=== PATIENT | male | born 1970 | race Caucasian/White ===

== ENCOUNTER → 2016-11-14 | Outpatient (CLI) | payer OTHER ==
[~2016-11-14] VITALS: Ht 185.4 cm; Wt 174.0 kg
[~2016-11-14] MED LIST: PENI500T2 PO
[2016-11-14 13:29] VITALS: BP 136/83; PULSE 132; Ht 185.4 cm; Wt 174.0 kg
== END | disposition home or self-care (01) ==
LOC: C.NEUR 11:57
PROVIDERS: ATTEND Internal Medicine Pulmonary Disease
DX: G47.33 Obstructive sleep apnea (adult) (pediatric) (principal); E66.01 Morbid (severe) obesity due to excess calories

== ENCOUNTER 2016-12-09 12:17 | Emergency (ER) | payer OTHER ==
[~2016-12-09] VITALS: Ht 185.4 cm; Wt 169.7 kg
[2016-12-09 12:26] VITALS: TEMP 36.4; Ht 185.4 cm; Wt 169.7 kg
[2016-12-09] MEDS ORDERED: PENI500T2 PO (12:50)
--- NOTE | 2016-12-09 12:51 | EMERGENCY ROOM VISIT NOTE ---
ED Visit Note First contact with patient: 12:30 CHIEF COMPLAINT: Right lower dental infection times one week HISTORY OF PRESENT ILLNESS: Patient is a 46-year-old male who presents emergency department for evaluation of right-sided dental infection. He has a tooth that he has seen the dentist for that initially they were going to place a crown on, but he was unable to afford this so they have plans to proceed with an extraction. He states that he is supposed to have it pulled by Dr. Vang in [place] in January. He noted increasing pain and swelling near the tooth that began earlier this week. He states that he was doing salt water rinses and using naproxen for pain. He states that he came to the head and "broke open last night." He notes a lot of blood and pus draining from the gum line that has continued through today. He notes the pain has markedly subsided since the abscess ruptured. He notes some swelling in the right lower jaw line. He denies any difficulty breathing or swallowing. He felt warm one evening but did not record a temperature with a thermometer. He has not been on any antibiotics recently. REVIEW OF SYSTEMS: Review of systems as per HPI. All other systems reviewed were negative. At least 6 systems reviewed. PMH: Electronic medical records are reviewed and summarized as above/below. See Problem List. SOCIAL HISTORY: Patient lives at home. On disability. Nonsmoker. PHYSICAL EXAM: Vital Signs: Reviewed Nurse's notes. CONSTITUTIONAL: Patient is a well-appearing 46-year-old -[place] male who is awake and alert and in no acute distress. Vital signs are stable. EARS: Tympanic membranes intact, not inflamed, have normal contour. External canals clear. MOUTH: Overall the patient has fair dentition. The right lower first molar in question has an obvious cavity, is fractured, and is tender to percussion. There is erythema along the gumline, and an open area with purulent drainage. The gumline was massaged and bloody/purulent material drained from the opening. Mucous membranes moist, no lesions, tongue and gums appear normal. THROAT: No pharyngeal injection, exudates, or tonsillar hypertrophy. Airway is patent. No trismus noted. FACE: There is slight swelling along the right lower jaw line, no erythema, increased warmth, induration or cellulitic changes. NECK: No lymphadenopathy. ED course: The patient was seen and evaluated as above. He has an abscess involving the right lower molar that is fractured and grossly carious. The area continues to drain on its own, and it did not require any additional intervention here at this time as it is still actively draining.. He will be placed on Pen-Vee K was given his first dose in the emergency department. He will continue salt water rinses and use [id number] medications for discomfort. He was advised to follow-up with his primary care provider or with his oral surgeon for further care and management. He has some swelling along the jaw line, but no evidence for facial cellulitis or Jorge Luis's angina at this time. Problem List Medical Problems: (1) Chronic Kidney Disease, Stage 3 (Moderate) Status: Chronic (2) Essential (Primary) Hypertension Status: Chronic (3) Morbid (Severe) Obesity Due To Excess Calories Status: Chronic (4) Schizophrenia, Unspecified Status: Chronic (5) Sleep Apnea, Unspecified Status: Chronic Current/Historical Medications Scheduled Penicillin V Potassium (Veetids), 500 MG PO QID Allergies Coded Allergies: No Known Allergies (Unverified , 12/09/16) Vital Signs Date Time Temp Pulse Resp B/P Pulse Ox O2 Delivery O2 Flow Rate FiO2 12/09/16 12:26 36.4 115 18 121/73 96 Room Air Medications Administered Medications (Trade) Dose Ordered Sig/Lyssa Route Start Time Stop Time Status Last Admin Dose Admin Penicillin V Potassium (Veetids Tab) 500 mg ONE ONCE PO 12/09/16 13:00 12/09/16 13:01 DC 12/09/16 12:56 500 MG Departure Information Impression Primary Impression: Dental abscess Prescriptions Penicillin V Potassium (VEETIDS) 500 Mg Tab 500 MG PO QID, #40 TAB Prov: Malissa Collier PA 12/09/16 Patient Instructions [facility] Additional Instructions Penicillin 500mg: Take one pill four times daily for 10 days for your dental infection. All antibiotics can cause diarrhea. If this occurs and you feel worse or it does not resolve in 1-2 days follow up with your doctor or return to the Emergency Department as this could be signs of serious underlying problems. Any medication can cause an allergic reaction, stop the pills immediately and return to the ER for rash, hives, breathing difficulties, or swelling. Finish all antibiotics even if your symptoms improve. Ibuprofen(Motrin, Advil) may be used for fever or pain. Use 600mg every six hours as needed. Take with food. Avoid using more than 2400mg in a 24 hour period. Do not use 2400mg per day for more than three consecutive days without physician direction. Prolonged inappropriate use can lead to stomach upset or ulcers. (AND/OR) Acetaminophen(Tylenol) may be used for fever or pain. Use 1000mg every six hours as needed. Avoid using more than 4000mg in a 24 hour period. Saltwater gargles after meals and before bedtime. Soft foods. Followup with your dentist/oral surgeon for definitive management. You may also follow up with your primary care physician for pain/care management until you can be seen by your dentist. Return to the emergency department for worsening pain, increasing facial redness or swelling, fevers, vomiting, inability to swallow, worsening symptoms or as needed.
[2016-12-09 13:00] VITALS: BP 127/92; PULSE 100; O2SAT 95
[2016-12-09] MEDS ORDERED: PENICILLIN V POTASSIUM 250 MG TAB PO ONE (13:00)
== END 2016-12-09 13:00 | disposition home or self-care (01) ==
LOC: C.EDB 12:18 → C.EDA 13:00
DX: K04.7 Periapical abscess without sinus (principal); N18.3 Chronic kidney disease, stage 3 (moderate); I12.9 Hypertensive chronic kidney disease with stage 1 through stage 4 chronic kidney disease, or unspecified chronic kidney disease; E66.01 Morbid (severe) obesity due to excess calories; F20.9 Schizophrenia, unspecified; G47.30 Sleep apnea, unspecified

== ENCOUNTER → 2017-04-30 | Outpatient (CLI) | payer OTHER ==
[2017-04-30 12:15] LABS: BASO % 0.2 %; BASO ABS # 0.01 K/uL (0-0.2); COMPLETE YES; EOS % 1.7 %; HEMATOCRIT 40.3 % (42-52); LYMPH % 32.3 %; LYMPH ABS # 1.73 K/uL (1.2-3.4); MEAN CELL VOLUME 88.8 fL (80-100); MEAN CORPUSCULAR HEMOGLOBIN 29.5 pg (25-34); MEAN CORPUSCULAR HGB CONC 33.3 g/dl (32-36); MEAN PLATELET VOLUME 11.4 fL (7.4-10.4); MONO % 9.2 %; NEUT % 56.6 %; PLATELET COUNT 238 K/uL (130-400); RED BLOOD COUNT 4.54 M/uL (4.7-6.1); WHITE BLOOD COUNT 5.35 K/uL (4.8-10.8)
[2017-04-30 12:40] LABS: ESTIMATED AVERAGE GLUCOSE 123 mg/dl; HA1C FLAG Normal (Normal)
[2017-04-30 12:58] LABS: ALT/SGPT 39 U/L (12-78); AST/SGOT 31 U/L (15-37); BLOOD UREA NITROGEN 8 mg/dl (7-18); BUN/CREATININE RATIO 4.7 (10-20); CARBON DIOXIDE 26 mmol/L (21-32); CHLORIDE 106 mmol/L (98-107); CHOLESTEROL 193 mg/dl (0-200); GLUCOSE 86 mg/dl (70-99); POTASSIUM 4.1 mmol/L (3.5-5.1); SODIUM 140 mmol/L (136-145); TRIGLYCERIDES 84 mg/dl (0-150); VERY LOW DENSITY LIPOPROT CALC 17 mg/dl
[2017-04-30 13:01] LABS: ALB/GLOB RATIO 0.8 (0.9-2); ALKALINE PHOSPHATASE 115 U/L (45-117); CHOLESTEROL/HDL RATIO 4.6; HDL CHOLESTEROL 42 mg/dl; LDL CHOLESTEROL CALCULATED 134 mg/dl
== END | disposition home or self-care (01) ==
LOC: C.LAB 09:29
PROVIDERS: ATTEND Family Medicine
DX: R73.03 Prediabetes (principal)

== ENCOUNTER → 2017-05-15 | Outpatient (CLI) | payer OTHER ==
[~2017-05-15] VITALS: Ht 185.4 cm; Wt 174.5 kg
[2017-05-15 13:26] VITALS: BP 117/83; PULSE 100; Ht 185.4 cm; Wt 174.5 kg
== END | disposition home or self-care (01) ==
LOC: C.NEUR 11:50
PROVIDERS: ATTEND Physician Assistant Medical
DX: G47.33 Obstructive sleep apnea (adult) (pediatric) (principal); Z99.89 Dependence on other enabling machines and devices; E66.01 Morbid (severe) obesity due to excess calories; T14.8 Other injury of unspecified body region; X58.XXXA Exposure to other specified factors, initial encounter

== ENCOUNTER → 2017-10-03 | Outpatient (CLI) | payer OTHER ==
[2017-10-03 12:15] LABS: ESTIMATED AVERAGE GLUCOSE 123 mg/dl; HA1C FLAG Normal (Normal)
[2017-10-03 12:33] LABS: ALB/GLOB RATIO 0.8 (0.9-2); ALKALINE PHOSPHATASE 128 U/L (45-117); ALT/SGPT 32 U/L (12-78); AST/SGOT 25 U/L (15-37); BLOOD UREA NITROGEN 10 mg/dl (7-18); BUN/CREATININE RATIO 6.2 (10-20); CALCIUM 9.2 mg/dl (8.5-10.1); CARBON DIOXIDE 26 mmol/L (21-32); CHLORIDE 104 mmol/L (98-107); CREATININE 1.56 mg/dl (0.60-1.40); GLUCOSE 92 mg/dl (70-99); POTASSIUM 3.7 mmol/L (3.5-5.1); SODIUM 137 mmol/L (136-145)
== END | disposition home or self-care (01) ==
LOC: C.LABBFT 09:27
PROVIDERS: ATTEND Family Medicine
DX: R73.03 Prediabetes (principal)

== ENCOUNTER → 2017-11-09 | Outpatient (CLI) | payer OTHER | END | disposition home or self-care (01) | LOC: C.LABBFT 11:05 | PROVIDERS: ATTEND Internal Medicine | DX: N34.2 Other urethritis (principal); R39.9 Unspecified symptoms and signs involving the genitourinary system ==

== ENCOUNTER → 2017-11-13 | Outpatient (CLI) | payer OTHER ==
[~2017-11-13] VITALS: Ht 185.4 cm; Wt 174.5 kg
[2017-11-13 13:53] VITALS: BP 120/80; PULSE 110; Ht 185.4 cm; Wt 174.5 kg
== END | disposition home or self-care (01) ==
LOC: C.NEUR 11:30
PROVIDERS: ATTEND Internal Medicine Pulmonary Disease
DX: G47.33 Obstructive sleep apnea (adult) (pediatric) (principal); E66.01 Morbid (severe) obesity due to excess calories; I10 Essential (primary) hypertension

== ENCOUNTER → 2018-03-04 | Outpatient (CLI) | payer OTHER ==
[2018-03-04 17:06] LABS: ALBUMIN 3.6 gm/dl (3.4-5.0); ALT/SGPT 40 U/L (12-78); AST/SGOT 27 U/L (15-37); BLOOD UREA NITROGEN 9 mg/dl (7-18); CALCIUM 9.2 mg/dl (8.5-10.1); CARBON DIOXIDE 28 mmol/L (21-32); GLUCOSE 96 mg/dl (70-99); POTASSIUM 4.1 mmol/L (3.5-5.1); SODIUM 137 mmol/L (136-145)
[2018-03-04 17:09] LABS: ALKALINE PHOSPHATASE 114 U/L (45-117); TOTAL PROTEIN 7.9 gm/dl (6.4-8.2)
== END | disposition home or self-care (01) ==
LOC: C.LABBFT 09:51
PROVIDERS: ATTEND Family Medicine
DX: R73.03 Prediabetes (principal)

== ENCOUNTER → 2018-06-13 | Outpatient (CLI) | payer OTHER ==
[2018-06-13 13:13] LABS: HEMOGLOBIN A1C 5.8 % (4.5-5.6)
== END | disposition home or self-care (01) ==
LOC: C.LABBFT 09:09
PROVIDERS: ATTEND Family Medicine
DX: R73.03 Prediabetes (principal)